=== PATIENT | male | born 1960 | race Caucasian/White ===

== ENCOUNTER 2017-08-10 15:52 | Inpatient (IN) | payer MEDICAID ==
--- NOTE | 2017-08-10 16:56 | ED Physician Chart ---
ED Chief Complaint/HPI - Patient Information Date Seen:: 08/10/17 Time Seen:: 16:05 Chief Complaint:: bleeding right hand History of Present Illness:: Spontaneous onset of bleeding from right palm about one half hour prior to admission. Patient had abscesses incised and drained July 24 at [facility]. A few days ago patient had blood transfusion at [facility]. Patient was discharged to a nursing home facility 2 days ago where he is receiving intravenous antibiotics via a PICC line. Allergies:: Allergies Allergy/AdvReac Type Severity Reaction Status Date / Time Penicillins Allergy Verified 08/10/17 16:20 Vitals:: Vital Signs - 8 hr 08/10/17 16:20 Temp 97.8 F HR 77 RR 19 BP 145/70 O2 Sat % 100 Historian:: Patient, EMS Review:: Nurse's Note Reviewed ED Review of Systems - Review of Systems General/Constitutional: No fever, No chills, Weight loss Head: No headache Eyes: No loss of vision ENT: No earache Neck: No neck pain Cardio Vascular: No chest pain, No palpitations Pulmonary: No SOB GI: No nausea, No vomiting, No diarrhea G/U: No dysuria, No frequency Musculoskeletal: No bone or joint pain Endocrine: No polyuria, No polydipsia Psychiatric: No prior psych history, No depression Hematopoietic: No bruising Allergic/Immuno: No urticaria Neurological: No syncope ED Past Medical History - Past Medical History Past Medical History: HTN, DM, Dyslipidemia, Other (hyperlipidemia) Family History: Diabetes Melitus, HTN Social History: Non Smoker, No Alcohol Surgical History: other (left hip prosthesis; drainage abscesses right wrist and right hand) Psychiatricy History: None Medication: Reviewed ED Physical Exam - Physical Examination General/Constitutional: Well-developed, well-nourished, Alert, No distress Other Gen/Cons comments:: Patient was Head: Atraumatic Eyes: Lids, conjuctiva normal, PERRL Other Skin comments:: About 4 cm long 5 mm gaping incision right palm. Incision lies parallel to the longitudinal axis of the arm. There is also an about 2 cm in diameter round superficial apparent drained abscess palmar right wrist. The laceration is actively bleeding with some blood squirting two feet or more. 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 1% Xylocaine was used for local anesthesia. 4-0 chromic running sutures were used to suture the right palm incision line. The bleeding slowed down with the suturing but did not completely stop. A pressure dressing with 4 x 4's and three-inch Tom wraps were then applied and the blood pressure cuff released. Hemostasis was accomplished with the application of the pressure dressing. Patient's capillary refill was then less than 2 seconds and patient had no pain. I talked to Dr. Darby who will be the citrix consultant and to Dr. Way who will be the admitting physician. ED Septic Shock - . Is Septic Shock (SBP<90, OR Lactate>4 mmol\L) present?: No - <6hrs of presentation: Vital Signs: Vital Signs - 8 hr 08/10/17 16:20 Temp 97.8 F HR 77 RR 19 BP 145/70 O2 Sat % 100 ED Reassessment (Disposition) - Reassessment Reassessment Condition:: Improved - Diagnosis Diagnosis:: Bleeding incision Right hand - Patient Disposition Admitted to:: Med/Surg Admitting Medical Physician:: Flo Way Condition at Disposition:: Stable, Improved
[2017-08-10 17:02] LABS: % BASOPHILS 0.6 % (0.0-2.0); % EOSINOPHILS 4.4 % (0.0-5.0); % LYMPHOCYTES 23.7 % (20.0-50.0); % MONOCYTES 10.6 % (2.0-10.0); % NEUTROPHILS 60.7 % (40.0-80.0); BASOPHILE ABSOLUTE 0.1 Th/cumm (0-0.2); EOSINOPHILE ABSOLUTE 0.5 Th/cmm (0.1-0.4); HEMATOCRIT 29.5 % (41.0-60); HEMOGLOBIN 9.7 gm/dL (12-16); LYMPHOCYTE ABSOLUTE 2.6 Th/cmm (1.5-3.0); MEAN CELL VOLUME 81.3 fl (80-99); MEAN CORPUSCULAR HEMOGLOBIN 26.6 pg (26.0-30.0); MEAN CORPUSCULAR HGB CONC 32.8 pg (28.0-36.0); MONOCYTE ABSOLUTE 1.2 Th/cmm (0.3-1.0); NEUTROPHILE ABSOLUTE 6.6 Th/cmm (1.8-8.0); PLATELET COUNT 362 Th/cmm (150-400); RED BLOOD COUNT 3.63 Mil/cmm (4.30-5.70); RED CELL DISTRIBUTION WIDTH 14.8 % (11.5-20.0)
[2017-08-10 17:14] LABS: INR 1.41 (0.5-1.4)
[2017-08-10 17:16] LABS: ALB/GLOB RATIO 0.6 (1.0-1.8); ALBUMIN 2.2 gm/dL (4.2-5.5); ALKALINE PHOSPHATASE 117 U/L (34-104); ANION GAP 8.9 (7.0-16.0); BILIRUBIN,TOTAL 0.4 mg/dL (0.3-1.0); BUN - UREA NITROGEN 33 mg/dL (7-25); CALCIUM SERUM 7.8 mg/dL (8.6-10.3); CARBON DIOXIDE 24.1 mEq/L (21.0-31.0); CHLORIDE 104 mEq/L (98-107); GFR AFRICAN-AMERICAN > 60.0 ml/min (>90); GFR NON AFRICAN-AMERICAN > 60.0 ml/min; GLUCOSE 184 mg/dL (70-105); SGOT 11 U/L (13-39); SGPT/ALT 6 U/L (7-52); SODIUM SERUM 132 mEq/L (136-145)
[2017-08-10] MEDS ORDERED: Hydrocodone/APAP 10 mg/325 mg Tab PO PRN ×2 (21:13→22:11)
[2017-08-10] MEDS ORDERED: Morphine Sulfate 2 mg/mL 1mL Syr IM PRN (22:19)
[2017-08-11] MEDS: Morphine Sulfate 2 mg/mL 1mL Syr IVP PRN ×2 (00:52→04:45)
[2017-08-11 02:43] VITALS: BP 141/67
[2017-08-11] MEDS ORDERED: Aspirin 81mg Chewable Tab PO SCH (09:00)
[2017-08-11] MEDS ORDERED: Multivitamin w/ Minerals Tab PO SCH (09:00)
[2017-08-11] MEDS ORDERED: Insulin Detemir 100 units/mL 10mL Vial SUBQ SCH (09:00)
--- NOTE | 2017-08-11 09:25 | Consultation ---
DATE OF CONSULTATION: 08/11/2017 SURGERY CONSULT REFERRING PHYSICIAN: Dr. Way. REASON FOR CONSULTATION: Bleeding right hand post-plastic surgery. HISTORY OF PRESENT ILLNESS: This is a 56-year-old male who underwent plastic surgery repair and finally excision of necrotic tissue of the right hand about [address] Dupont, a plastic surgeon. He apparently had a blood transfusion in the [facility]. The surgical site started bleeding. He came to the Emergency Room where Dr. Tate ER physician placed sutures to control the active bleeding. Other comorbidities include hypertension, diabetes mellitus, hyperlipidemia. LABORATORY STUDIES: Show hemoglobin at 9.7, WBC at 11,000. Blood sugar was 184. BUN slightly elevated to 33. RECOMMENDATIONS: This patient should be referred back to Dr. Dupont who will decide on proper course of treatment. The hand itself was not unwrapped to prevent any further bleeding. Appointment will be made to see the patient either at his office or at the hospital. JOB# [id number]
[2017-08-11 10:41] LABS: A1C % 7.5 % (4.0-6.0)
[2017-08-11] MEDS ORDERED: Morphine Sulfate 2 mg/mL 1mL Syr IVP PRN (11:38)
[2017-08-11] MEDS: INSULIN ASPART SLIDING SCALE 100 UNITS/ML UNIT SUBQ SCH ×2 (12:39→18:12)
[2017-08-11] MEDS ORDERED: Vancomycin HCl 1.5 GM in Sodium Chloride 0.9% 500 ML IV SCH (13:00)
[2017-08-11] MEDS ORDERED: cefTRIAXone 1 GM in Sodium Chloride 0.9% 50 ML IV SCH (13:00)
--- NOTE | 2017-08-11 15:04 | Consultation ---
Consult Note - Consult Note Service Date: 08/11/17 Referring Physician: Flo Way Consult Note: PHYSICIAN Consultation Note: Date of Admission: 08/10/17 Purpose of Consultation: Chief Complaint: Patient DOTTIE COBIAN was admitted to location Medical/Surgical Unit I with BLEEDING INCISION RT HAND. History of Present Illness: 56 year male had cellulitis and absces of right hand, which was surgically treated for Dr DUPONT. I and D was performed at the [facility] on . He was brought to the ER for bleeding from the surgical site. pressure dressing was applied and bleeding has stopped. He was discharged to SNF on IV antibiotics via PICC line. Past Medical History: Allergies Allergy/AdvReac Type Severity Reaction Status Date / Time Penicillins Allergy Verified 08/10/17 16:20 Vital Signs Temp 98.3 F 08/11/17 12:00 Pulse 76 08/11/17 12:00 Resp 20 08/11/17 12:00 BP 154/63 08/11/17 12:00 Pulse Ox 100 08/11/17 12:00 Intake & Output 08/10/17 08/11/17 08/11/17 18:59 06:59 18:59 Intake Total 720 Output Total 1200 Balance -480 Weight (lbs) 86.228 kg Intake: Oral 720 Output: Urine 1200 Stool 0 Other: # Bowel Movements 0 Laboratory Results - last 24 hr 08/10/17 08/11/17 08/11/17 22:36 09:35 11:55 POC Glucose 264 H 241 H 231 H Home Medication Medication Instructions Recorded Type 0.9 % Sodium Chloride [Normal 10 ml IV QSHIFT 08/10/17 History Saline Flush 10 ml] Acetaminophen [Tylenol] 650 mg PO Q6HR PRN 08/10/17 History Amlodipine Besylate 10 mg PO DAILY 08/10/17 History Ascorbic Acid [Vitamin C] 500 mg PO DAILY 08/10/17 History Aspirin [Aspirin Chewable] 81 mg PO DAILY 08/10/17 History Benazepril HCl 20 mg PO DAILY 08/10/17 History Carvedilol [Coreg] 6.25 mg PO BID 08/10/17 History Cholecalciferol (Vitamin D3) 50,000 unit PO QMONTH 08/10/17 History [Vitamin D3] Digoxin [Lanoxin] 0.25 mg PO DAILY 08/10/17 History Hydrocodone/APAP 10 mg/325 mg 1 tab PO Q4H PRN 08/10/17 History [Hawi 10 mg/325 mg] Insulin Detemir [Levemir] 10 unit SQ DAILY 08/10/17 History Multivitamin w/ Minerals 1 tab PO DAILY 08/10/17 History [Theragran M] Pravastatin Sodium 20 mg PO HS 08/10/17 History Zinc Sulfate 220 mg PO DAILY 08/10/17 History cefTRIAXone [Rocephin] 1 gm IV Q12H 08/10/17 History metFORMIN [Glucophage] 500 mg PO BID 08/10/17 History Current Medications Generic Name Dose Route Start Last Admin Trade Name Freq PRN Reason Stop Dose Admin Acetaminophen 650 mg 08/10/17 21:13 Tylenol PO 10/09/17 21:12 Q6HR PRN MILD PAIN Acetaminophen/Hydrocodone Bitart 1 tab 08/10/17 22:11 08/10/17 22:38 Hawi 10 Mg/325 Mg PO 10/09/17 21:12 1 tab Q4H PRN Administration PAIN 8-10 Amlodipine Besylate 10 mg 08/11/17 09:00 08/11/17 09:36 Norvasc PO 10/10/17 08:59 10 mg DAILY JOCELINE Administration Ascorbic Acid 500 mg 08/11/17 09:00 08/11/17 09:37 Vitamin C PO 10/10/17 08:59 500 mg DAILY JOCELINE Administration Aspirin 81 mg 08/11/17 09:00 08/11/17 09:36 Aspirin Chewable PO 10/10/17 08:59 81 mg DAILY JOCELINE Administration Benazepril HCl 20 mg 08/11/17 09:00 08/11/17 09:40 Lotensin PO 10/10/17 08:59 20 mg DAILY JOCELINE Administration Carvedilol 6.25 mg 08/11/17 09:00 08/11/17 09:36 Coreg PO 10/10/17 08:59 6.25 mg BID JOCELINE Administration Digoxin 0.25 mg 08/11/17 09:00 08/11/17 09:36 Lanoxin PO 10/10/17 08:59 0.25 mg DAILY JOCELINE Administration Ergocalciferol 50,000 iu 09/08/17 09:00 Vitamin D PO 11/07/17 08:59 QMONTH JOCELINE Vancomycin HCl 1.5 gm/ Sodium 500 mls @ 250 mls/hr 08/11/17 13:00 08/11/17 13 :19 Chloride IV 10/10/17 12:59 250 mls/hr Q12H JOCELINE Administration Ceftriaxone Sodium 1 gm/ 50 mls @ 100 mls/hr 08/11/17 13:00 08/11/17 13:19 Sodium Chloride IV 10/10/17 12:59 100 mls/hr Q24HR JOCELINE Administration Insulin Aspart 0 units 08/11/17 11:30 08/11/17 12:39 Novolog Insulin Sliding Scale SUBQ 10/10/17 11:29 4 units ACHS JOCELINE Administration Protocol Insulin Detemir 10 units 08/11/17 09:00 08/11/17 09:37 Levemir Insulin SUBQ 10/10/17 08:59 10 units DAILY JOCELINE Administration Protocol Metformin HCl 500 mg 08/11/17 08:00 08/11/17 09:43 Glucophage PO 10/10/17 07:59 500 mg BIDWM JOCELINE Administration Miscellaneous 1 ea 08/11/17 11:35 Vancomycin Iv Per Pharmacy [facility] 10/10/17 11:34 PRN PRN PROTOCOL Morphine Sulfate 2 mg 08/10/17 22:20 08/11/17 04:45 Morphine IVP 10/09/17 22:19 2 mg Q4HR PRN Administration FOR SEVERE PAIN Morphine Sulfate 1 mg 08/11/17 11:38 08/11/17 14:39 Morphine IVP 10/10/17 11:37 1 mg Q4HR PRN Administration moderate pain Ondansetron HCl 4 mg 08/11/17 04:44 Zofran IV 10/09/17 22:29 Q6H PRN nausea vomiting Simvastatin 10 mg 08/11/17 21:00 Zocor PO 10/10/17 20:59 HS JOCELINE Sodium Chloride 10 ml 08/11/17 08:00 08/11/17 09:40 Saline Flush IV 10/10/17 07:59 10 ml QSHIFT JOCELINE Administration Zinc Sulfate 220 mg 08/11/17 09:00 08/11/17 09:37 Zinc Sulfate PO 10/10/17 08:59 220 mg DAILY JOCELINE Administration Review of Systems: A 12 point ROS was reviewed with the pertinent positive and negatives noted in the HPI. Social History Smoking Status Unknown if ever smoked Drug Use No Alcohol Use No Family Medical History Family Medical History Start: 08/10/17 20: 53 Freq: ONCE Status: Active Document 08/10/17 20:53 KEATON (Rec: 08/11/17 00:31 KEATON [id number]) Family Medical History Mother History Unknown Yes Ethnicity Unknown Living Status Unknown Hx Family Cancer UNKNOWN Hx Family Coronary Artery Disease UNKNOWN Hx Family Congestive Heart Failure UNKNOWN Hx Family Hypertension UNKNOWN Hx Family Stroke UNKNOWN Hx Family Diabetes UNKNOWN Hx Family Seizures UNKNOWN Hx Family Dementia UNKNOWN Hx Family AIDS UNKNOWN Hx Family COPD UNKNOWN Hx Family Hepatitis UNKNOWN Hx Family Psychiatric Problems UNKNOWN Hx Family Tuberculosis UNKNOWN Other Medical History UNKNOWN Physical Exam: General: WN WD. not in acute distress. HEENT: head is normocephalic, atraumatic. Oral cavity is moist and pink tongue. Neck: Supple, no JKVD, no carotid bruit. Cardio: s1 AND s2 wnl. No murmur. No rub, no gallop. Respiratory: Vesicular breath sounds. no crackles no wheezing. Abdominal: Soft NT ND BS present. Genital/Urinary: deferred. Extremities: NCCE. right hand surgical incision. Open wounds. no significant infection. Neurological: AAOx3. Assessment: 1. Bleeding from surgical wound, stopped. No active infection. 2. h/o cellulitis and abscess of right hand, had I and D by Dr Dupont at [facility]. 3. Plan: Continue the same treatment. May be discharged to snf back again. If there is any complication, may follow up with Dr Dupont or send the patient to [facility] or [facility]. AMANDA TREVIZO. Signed, Otis Vo M.D. [id number]
== END 2017-08-11 19:10 | disposition home or self-care (01) | DRG 793 ==
LOC: ER 15:52 → MSI 19:44
PROVIDERS: ADMIT Internal Medicine; ATTEND Internal Medicine
PROC: 0X3 Anatomical Regions, Upper Extremities, Control (ICD-10-PCS; principal; 2017-08-10)
DX: L76.21 Postprocedural hemorrhage of skin and subcutaneous tissue following a dermatologic procedure (principal); E11.9 Type 2 diabetes mellitus without complications; I10 Essential (primary) hypertension; E78.5 Hyperlipidemia, unspecified; Y83.8 Other surgical procedures as the cause of abnormal reaction of the patient, or of later complication, without mention of misadventure at the time of the procedure; Y92.89 Other specified places as the place of occurrence of the external cause
CPT/HCPCS: 36415-UA; 80053-TC; 82948-90; 83036-90; 85025-TC; 85610-TC; 85730-TC; 86850-TC; 86900-TC; 86901-TC; A4217; J0696; J1815; J2001; J2270; J3370; J7040; Z7610